=== PATIENT | female | born 1985 | race Caucasian/White ===

== ENCOUNTER 2017-07-08 16:49 | Emergency (ER) | payer MEDICAID ==
[~2017-07-08] VITALS: Ht 177.8 cm; Wt 170.0 kg
[~2017-07-08 16:49] MED LIST: CIPRO500 MG OR; PHENERGAN SUPP RE
[2017-07-08] MEDS ORDERED: BUSPAR5 MG PO (17:00)
[2017-07-08] MEDS ORDERED: ZOLOFT100 MG PO (17:01)
[2017-07-08] MEDS ORDERED: LORATADINE10 M1 PO (17:01)
[2017-07-08] MEDS ORDERED: MOTRIN800 MG PO (18:31)
[2017-07-08] MEDS ORDERED: TRAMADOL HYDROC50 MG PO (18:31)
[2017-07-08] MEDS ORDERED: FLEXERIL PO (18:31)
[2017-07-08 18:45] VITALS: BP 139/77
== END 2017-07-08 18:45 | disposition home or self-care (01) | DRG 552 ==
LOC: ED 16:49
DX: M54.6 Pain in thoracic spine (principal)

== ENCOUNTER 2017-09-14 15:04 | Emergency (ER) | payer MEDICAID ==
[~2017-09-14] VITALS: Ht 177.8 cm; Wt 150.0 kg
[~2017-09-14 15:04] MED LIST changes: +BUSPAR5 MG PO; +FLEXERIL PO; +LORATADINE10 M1 PO; +MOTRIN800 MG PO; +TRAMADOL HYDROC50 MG PO; +ZOLOFT100 MG PO
[2017-09-14] MEDS ORDERED: DOXYCYC MONO100 M2 PO (15:39)
[2017-09-14] MEDS ORDERED: CIPRO XR500 MG PO (15:39)
[2017-09-14 16:17] VITALS: BP 125/85
== END 2017-09-14 16:15 | disposition home or self-care (01) | DRG 605 ==
LOC: ED 15:04
DX: S61.431A Puncture wound without foreign body of right hand, initial encounter (principal); F17.210 Nicotine dependence, cigarettes, uncomplicated; F99 Mental disorder, not otherwise specified; W26.8XXA Contact with other sharp object(s), not elsewhere classified, initial encounter; Y93.89 Activity, other specified; Y92.008 Other place in unspecified non-institutional (private) residence as the place of occurrence of the external cause

== ENCOUNTER 2017-10-26 19:57 | Emergency (ER) | payer MEDICAID ==
[~2017-10-26] VITALS: Ht 177.8 cm; Wt 165.6 kg
[~2017-10-26 19:57] MED LIST changes: +CIPRO XR500 MG PO; +DOXYCYC MONO100 M2 PO
[2017-10-26] MEDS ORDERED: LORTAB 1010 MG PO (20:39)
[2017-10-26] MEDS ORDERED: AMOXICILLIN500 MG PO (20:39)
[2017-10-26 20:56] VITALS: BP 131/81
== END 2017-10-26 20:56 | disposition home or self-care (01) | DRG 159 ==
LOC: ED 19:57
DX: K04.7 Periapical abscess without sinus (principal); F31.9 Bipolar disorder, unspecified; F17.210 Nicotine dependence, cigarettes, uncomplicated

== ENCOUNTER 2017-12-04 17:55 | Emergency (ER) | payer MEDICARE, MEDICAID ==
[~2017-12-04] VITALS: Ht 177.8 cm; Wt 168.0 kg
[~2017-12-04 17:55] MED LIST changes: +AMOXICILLIN500 MG PO; +LORTAB 1010 MG PO
[2017-12-04] MEDS ORDERED: LEVOTHYROXIN75 MCG PO (18:11)
[2017-12-04] MEDS ORDERED: LIPITOR20 M1 PO (18:12)
[2017-12-04 18:33] LABS: HEMATOCRIT 38.3 % (37.0-47.0); IMMATURE GRANULOCYTES 0.4 % (0.0-1.0); MEAN CELL VOLUME 84.2 fL CALC (80.0-100.0); MEAN CORPUSCULAR HGB 28.6 pG CALC (26.0-32.0); MEAN CORPUSCULAR HGB CONC 33.9 g/L CALC (32.0-36.0); NEUT# 9.56 thou/uL (2.00-7.15); RED BLOOD COUNT 4.55 mill/uL (4.20-5.60); RED CELL DISTRI WIDTH 13.4 % (11.5-15.5)
[2017-12-04 19:10] LABS: ALBUMIN 3.9 g/dL (3.2-5.0); ALKALINE PHOSPHATASE 84 u/l (38-126); ANION GAP 14 (6-22 (CALC)); BILIRUBIN, TOTAL 0.5 mg/dL (0.0-1.4); BUN 14 mg/dL (7-17); BUN/CREATININE RATIO 21 (12-20 (CALC)); CARBON DIOXIDE 23 mmol/l (22-30); CHLORIDE 106 mmol/l (95-108); CREATININE 0.7 mg/dL (0.5-1.0); GFR > 60 ML/MIN (>=60 (CALC)); GFR FOR AFR.AMER. > 60 ML/MIN (>=60 (CALC)); POTASSIUM 4.1 mmol/l (3.5-5.1); SGPT/ALT 34 u/l (9-52); SODIUM 139 mmol/l (137-146); TOTAL PROTEIN 7.5 g/dL (6.3-8.2)
[2017-12-04 19:18] LABS: SGOT/AST 39 u/l (14-36)
[2017-12-04 19:20] LABS: MYOGLOBIN 29 ng/mL (0 - 62)
[2017-12-04 19:40] LABS: TSH, 3RD GENERATION 2.33 uIU/mL (0.47 - 4.68)
[2017-12-04 20:06] LABS: URINE BILIRUBIN - DIPSTICK NEGATIVE (NEGATIVE); URINE BLOOD DIPSTICK SMALL (NEGATIVE); URINE COLOR YELLOW; URINE GLUCOSE - DIPSTICK NEGATIVE (NEGATIVE); URINE KETONE TRACE mg/dL (NEGATIVE); URINE LEUK ESTERASE NEGATIVE (NEGATIVE); URINE NITRITE - DIPSTICK NEGATIVE (Negative); URINE PH 5.5 (4.5-8.0); URINE PROTEIN - DIPSTICK NEGATIVE (NEG-TRACE); URINE SPECIFIC GRAVITY 1.025; URINE UROBILINOGEN - DIPSTICK 0.2 E.U./dL (0.2)
[2017-12-04 20:08] LABS: URINE CLARITY CLEAR
[2017-12-04 20:32] LABS: URINE SQUAMOUS EPITHELIAL CELL FEW EPI/hpf (0-FEW)
[2017-12-04] MEDS ORDERED: CIPROFLOXACN500 MG PO (22:34)
[2017-12-04 23:15] VITALS: BP 129/60
== END 2017-12-04 23:15 | disposition home or self-care (01) ==
LOC: ED 17:55
PROVIDERS: Emergency Medicine
DX: R07.89 Other chest pain (principal); N30.90 Cystitis, unspecified without hematuria; F31.9 Bipolar disorder, unspecified; E03.9 Hypothyroidism, unspecified; E78.5 Hyperlipidemia, unspecified; F17.210 Nicotine dependence, cigarettes, uncomplicated; Z82.49 Family history of ischemic heart disease and other diseases of the circulatory system